=== PATIENT | female | born 1995 | race Caucasian/White ===

== ENCOUNTER 2024-11-20 13:07 | Emergency (ER) | payer OTHER, SELFPAY ==
--- NOTE | ~2024-11-20 | XR_ITS ---
XR lumbar spine 2-3V Indication: low back pain x 2 days, no inj. no surgery Comparison: None Findings: The vertebral heights are intact. No fracture or subluxation. The disc heights are intact. Soft tissues unremarkable Impression: No acute abnormality. Reviewed, dictated and finalized at location P. Impression: No acute abnormality.
--- NOTE | ~2024-11-20 | XR_ITS ---
EXAMINATION: XR hip BI 2V w AP pelvis, 11/20/2024 14:10 CDT HISTORY: pain, no inj, no surg, pain x 2 days COMPARISON: No comparisons available. Findings: No acute fracture or malalignment. No significant degenerative changes. Soft tissues unremarkable. Impression: No acute fracture or malalignment. Reviewed, dictated and finalized at location P. Impression: No acute fracture or malalignment.
[2024-11-20 13:21] VITALS: BP 113/72; PULSE 103; RESP 16; TEMP 36.6; O2SAT 99
[2024-11-20] MEDS: KETOROLAC (*BKC) 60 MG/2 ML VIAL IM (13:57)
--- NOTE | 2024-11-20 14:06 | ED_ITS ---
HPI - General Adult General Chief complaint: Back Pain/Injury Stated complaint: HIP/BACK PAIN Source: patient Mode of arrival: ambulatory Limitations: no limitations History of Present Illness HPI narrative: Patient presents for evaluation of low back pain and bilateral hip pain. She states she has a history of herniated disc in her lower back. She intermittently experiences some pain and low back on a chronic basis. Yesterday her symptoms became worse when she was getting ready for work. She denies any specific movement or injury which could have caused her symptoms. Pain is constant, sharp, burning, 9.5/10 in severity. She tried using lidocaine patch which seemed to provide mild relief. She took 800 mg of ibuprofen without any improvement in her pain thereafter. Certain positions and movements worsen her pain. Denies any urinary symptoms. Related Data Home Medications ?Medication ?Instructions ?Recorded ?Confirmed ?Last Taken ?Type lisdexamfetamine 30 mg capsule 30 mg PO DAILY 11/20/24 11/20/24 Unknown History Allergies Allergy/AdvReac Type Severity Reaction Status Date / Time Penicillins Allergy Mild Rash Verified 11/20/24 13:18 escitalopram Allergy rash Verified 11/20/24 13:19 Review of Systems Review of Systems: CONSTITUTIONAL: Denies fever, chills, or sweats. EYES: Denies visual changes, redness, or discharge. ENT: Denies rhinorrhea, congestion, sore throat, or otalgia. CARDIOVASCULAR: Denies chest pain, palpitations, or edema. RESPIRATORY: Denies cough or dyspnea. GASTROINTESTINAL: Denies abdominal pain, nausea, vomiting, or diarrhea. GENITOURINARY: Denies dysuria or hematuria. SKIN: Denies rash or itching. MUSCULOSKELETAL: reports low back pain and bilateral hip pain. NEUROLOGIC: Denies headache, numbness, dizziness, or weakness. PSYCHIATRIC: Denies anxiety or depression. [facility] Past Medical History Medical History ADD (attention deficit disorder) Lumbar herniated disc Surgical History Surgical History No pertinent past surgical history Family History Family History Grandparent Family history of malignant neoplasm Family history of dementia Family history of neuropathy Social History Social History Smoking status: Never smoker Alcohol intake: never Additional occupation/education comments: waittress Gender identity (if verbalized by the patient): Female Spiritual care concerns: No Exam Narrative: GENERAL: visibly uncomfortable. Exhibits facial grimacing but in no acute distress HEAD: Normocephalic, atraumatic. EYES: PERRLA and EOMI. ENT: Nares clear, no rhinorrhea or epistaxis. Mucous membranes moist. Oropharynx without tonsillar hypertrophy exudate or other lesions. Bilateral TMs pearly white nonbulging NECK: Supple. No adenopathy or masses. No carotid bruits or JVD CHEST: Clear to auscultation. No respiratory distress. No wheezes rales or rhonchi HEART: Regular rate and rhythm. No murmur heard. Normal peripheral pulses. ABDOMEN: Soft, nontender, nondistended, normal active bowel sounds. BACK: there is tenderness diffusely in the lumbar spinal region EXTREMITIES: There is tenderness over both hips. There is no crepitus or deformity. She is able to tolerate full passive range of motion of both hips SKIN: Warm, dry, no rash. NEURO: No focal deficits. Alert and oriented x3. PSYCH: Normal mood and affect. Course Course Emergency Course: This is a 29-year-old female who presented for evaluation of low back pain and bilateral hip pain. X rays Negative for fracture. Exam consistent lumbar radiculopathy. Discharge with Medrol Dosepak, hydrocodone and Flexeril. She was given Toradol while here. She should follow with primary care. Application of warm moist heat may help. Go to the ER for intractable pain. Patient in agreement with plan care. Level of Care: Express Care Visit Vital Signs Vital signs: Vital Signs Temperature 36.6 C 11/20/24 13:21 Pulse Rate 103 H 11/20/24 13:21 Respiratory Rate 16 11/20/24 13:21 Blood Pressure 113/72 11/20/24 13:21 Pulse Oximetry 99 11/20/24 13:21 Temperature 36.6 C 11/20/24 13:21 Pulse Rate 103 H 11/20/24 13:21 Respiratory Rate 16 11/20/24 13:21 Blood Pressure 113/72 11/20/24 13:21 Pulse Oximetry 99 11/20/24 13:21 Medical Decision Making Vital Signs Vital Signs: Vital Signs Temperature 36.6 C 11/20/24 13:21 Pulse Rate 103 H 11/20/24 13:21 Respiratory Rate 16 11/20/24 13:21 Blood Pressure 113/72 11/20/24 13:21 Pulse Oximetry 99 11/20/24 13:21 Temperature 36.6 C 11/20/24 13:21 Pulse Rate 103 H 11/20/24 13:21 Respiratory Rate 16 11/20/24 13:21 Blood Pressure 113/72 11/20/24 13:21 Pulse Oximetry 99 11/20/24 13:21 Imaging Data Radiologist's impression: EXAMINATION: XR hip BI 2V w AP pelvis, 11/20/2024 14:10 CDT HISTORY: pain, no inj, no surg, pain x 2 days COMPARISON: No comparisons available. Findings: No acute fracture or malalignment. No significant degenerative changes. Soft tissues unremarkable. Impression: No acute fracture or malalignment. cc: Glenn Killian APRN; Curtis, Jesus Manuel VERGARA~ XR lumbar spine 2-3V Indication: low back pain x 2 days, no inj. no surgery Comparison: None Findings: The vertebral heights are intact. No fracture or subluxation. The disc heights are intact. Soft tissues unremarkable Impression: No acute abnormality. Discharge Plan Discharge Clinical Impression: Acute lumbar radiculopathy Patient Disposition: Home Condition: Stable Instructions: Antibiotic Form, Lumbar Radiculopathy (ED) Patient Language: Setswana Prescriptions: New methylprednisolone [Medrol (Chuy)] 4 mg tablets,dose pack See Rx Instructions .ROUTE .COMPLEX Qty: 21 0RF Rx Instructions: for 6 days cyclobenzaprine 10 mg tablet 10 mg PO TID PRN (Reason: muscle spasm) Qty: 15 0RF hydrocodone-acetaminophen 5-325 mg tablet 1 - 2 tablet PO Q6H PRN (Reason: pain) Qty: 12 0RF No Action lisdexamfetamine 30 mg capsule 30 mg PO DAILY Follow-up/Referrals: Curtis,Jesus Manuel Dobbs MD [Primary Care Provider, Unknown] Stand Alone Forms: Work/School Release IP Time of Disposition: 14:36
== END 2024-11-20 14:40 | disposition home or self-care (01) ==
PROVIDERS: Emergency Provider Nurse Practitioner; PCP Internal Medicine
DX: M54.16 Radiculopathy, lumbar region (principal); F98.8 Other specified behavioral and emotional disorders with onset usually occurring in childhood and adolescence
CPT/HCPCS: 72100; 73521; 96372; 99204; G0463; J1885